=== PATIENT | female | born 1955 | race Caucasian/White ===

== ENCOUNTER → 2016-10-01 | Outpatient (CLI) | payer OTHER | LOC: KOH-I 11:09 | DX: J45.41 Moderate persistent asthma with (acute) exacerbation (principal) | CPT/HCPCS: 71020 ==

== ENCOUNTER 2016-11-22 00:22 | Emergency (ER) | payer OTHER ==
[2016-11-22 01:19] LABS: HEMOGLOBIN 15.4 gm/dl (12.3-15.3); RED BLOOD COUNT 4.85 M/UL (4.00-5.10); WHITE BLOOD COUNT 16.5 K/UL (4.5-11.0)
[2016-11-22 01:40] LABS: BUN/CREATININE RATIO 14 (0-10)
== END 2016-11-22 03:46 | disposition home or self-care (01) ==
LOC: ER1 00:22
PROVIDERS: Emergency Medicine
DX: R55 Syncope and collapse (principal); M79.7 Fibromyalgia; I34.1 Nonrheumatic mitral (valve) prolapse; Z79.82 Long term (current) use of aspirin; Z79.899 Other long term (current) drug therapy
CPT/HCPCS: 36415; 70450; 80053; 81001; 83605; 83690; 85025; 87040; 93005; 96360; 99284

== ENCOUNTER → 2020-08-21 | Outpatient (CLI) | payer MEDICARE, OTHER | LOC: HEART 5 08:38 | DX: R60.0 Localized edema (principal); R93.1 Abnormal findings on diagnostic imaging of heart and coronary circulation; I08.1 Rheumatic disorders of both mitral and tricuspid valves | CPT/HCPCS: 93306 ==

== ENCOUNTER → 2021-11-28 | Outpatient (CLI) | payer MEDICARE, OTHER | LOC: RAD 16:25 | DX: M54.6 Pain in thoracic spine (principal); R05.1 Acute cough | CPT/HCPCS: 71046; 72072 ==

== ENCOUNTER → 2022-01-02 | Outpatient (CLI) | payer MEDICARE, OTHER ==
[2022-01-02 12:52] LABS: HEMOGLOBIN 14.2 gm/dl (12.3-15.3); RED BLOOD COUNT 4.48 M/UL (4.00-5.10); WHITE BLOOD COUNT 8.7 K/UL (4.5-11.0)
[2022-01-02 13:40] LABS: BUN/CREATININE RATIO 17 (0-10)
== END ==
LOC: LAB 11:07
PROVIDERS: Orthopaedic Surgery
DX: M17.10 Unilateral primary osteoarthritis, unspecified knee (principal); Z20.822 Contact with and (suspected) exposure to COVID-19
CPT/HCPCS: 36415; 80048; 82040; 83036; 85027; G0480; U0002